=== PATIENT | male | born 1950 | race Caucasian/White ===

== ENCOUNTER → 2017-06-08 11:22 | Outpatient (CLI) | payer MEDICARE, SELFPAY ==
[2017-06-08 12:25] LABS: Amphetamine Urine VISTA NEGATIVE (<1000 ng/mL); Barbiturate Urine VISTA NEGATIVE (< 200 ng/mL); Benzodiazepine Urine VISTA NEGATIVE (< 200 ng/mL); Cocaine Urine VISTA NEGATIVE (< 300 ng/mL); Ecstacy Urine VISTA NEGATIVE (< 500 ng/mL); Methadone Urine VISTA NEGATIVE (< 300 ng/mL); PCP Urine VISTA NEGATIVE (< 25 ng/mL); THC Urine VISTA NEGATIVE (< 50 ng/mL); Vista UDS pH Range 5
== END ==
PROVIDERS: Family Provider Nurse Practitioner Family; PCP Nurse Practitioner Family; Visit Provider Anesthesiology Pain Medicine
DX: F11.20 Opioid dependence, uncomplicated (principal)
CPT/HCPCS: 80307

== ENCOUNTER → 2017-06-20 08:23 | Outpatient (CLI) | payer MEDICARE, SELFPAY ==
--- NOTE | 2017-06-20 08:25 | RAD_ITS ---
STUDY: X-RAY - LUMBOSACRAL SPINE REASON FOR EXAM: Male, 66 years old. Lower back pain. TECHNIQUE: 7 view(s) of the lumbosacral spine were obtained. COMPARISON: Lumbar spine MRI, September 14, 2016. FINDINGS: There is flattening of lumbar lordosis. There is mild scoliosis of the thoracic spine. There is retrolisthesis of C3 on C4 of 3 mm. There is anterolisthesis of L2 on L3 of 3 mm. Otherwise normal alignment. There is maintenance of alignment with flexion and extension. There is multilevel endplate spondylosis of the lumbar vertebrae. There is multi-level degenerative disc disease with multi-level disc space narrowing. This is most marked at L2-3 and L3-4 . There is no evidence of acute fracture or loss of vertebral axial height. There is no evidence of spondylolysis. Normal bilateral sacral ala, sacroiliac joints, and visualized sacrum. There is atherosclerotic calcification of the abdominal aorta without a demonstrated aneurysm. RAD/L/S Spine Comp/w Bending Views IMPRESSION: Scoliosis and degenerative changes of the lumbar spine. There is no marked interval change. Electronically Signed: Ming West DO at 20:32 EDT Tel [phone], Service support ,
== END ==
PROVIDERS: Family Provider Nurse Practitioner Family; PCP Nurse Practitioner Family; Visit Provider Orthopaedic Surgery
DX: M54.16 Radiculopathy, lumbar region (principal)
CPT/HCPCS: 72114

== ENCOUNTER → 2018-04-25 11:17 | Outpatient (CLI) | payer MEDICARE, SELFPAY ==
[2018-04-25 12:51] LABS: Amphetamine Urine VISTA NEGATIVE (<1000 ng/mL); Barbiturate Urine VISTA NEGATIVE (< 200 ng/mL); Benzodiazepine Urine VISTA NEGATIVE (< 200 ng/mL); Cocaine Urine VISTA NEGATIVE (< 300 ng/mL); Ecstacy Urine VISTA NEGATIVE (< 500 ng/mL); Methadone Urine VISTA NEGATIVE (< 300 ng/mL); PCP Urine VISTA NEGATIVE (< 25 ng/mL); THC Urine VISTA NEGATIVE (< 50 ng/mL); Vista UDS pH Range 6
== END ==
PROVIDERS: Family Provider Nurse Practitioner Family; PCP Nurse Practitioner Family; Referring Provider Anesthesiology Pain Medicine; Visit Provider Anesthesiology Pain Medicine
DX: F11.20 Opioid dependence, uncomplicated (principal)
CPT/HCPCS: 80307

== ENCOUNTER → 2019-08-01 09:40 | Outpatient (CLI) | payer MEDICARE, SELFPAY ==
[2017-06-20 08:24] VITALS: BMI 30.7
[2019-08-01 10:39] LABS: Amphetamine Urine VISTA NEGATIVE (<1000 ng/mL); Barbiturate Urine VISTA NEGATIVE (< 200 ng/mL); Benzodiazepine Urine VISTA NEGATIVE (< 200 ng/mL); Cocaine Urine VISTA NEGATIVE (< 300 ng/mL); Ecstacy Urine VISTA NEGATIVE (< 500 ng/mL); Methadone Urine VISTA NEGATIVE (< 300 ng/mL); PCP Urine VISTA NEGATIVE (< 25 ng/mL); THC Urine VISTA NEGATIVE (< 50 ng/mL); Vista UDS pH Range 6
== END ==
PROVIDERS: PCP Nurse Practitioner Family; Referring Provider Anesthesiology Pain Medicine; Visit Provider Anesthesiology Pain Medicine
DX: F11.20 Opioid dependence, uncomplicated (principal)
CPT/HCPCS: 80307

== ENCOUNTER → 2020-02-13 10:04 | Outpatient (CLI) | payer MEDICARE, SELFPAY ==
[2020-02-13 11:30] LABS: Amphetamine Urine VISTA NEGATIVE (<1000 ng/mL); Barbiturate Urine VISTA NEGATIVE (< 200 ng/mL); Benzodiazepine Urine VISTA NEGATIVE (< 200 ng/mL); Cocaine Urine VISTA NEGATIVE (< 300 ng/mL); Ecstacy Urine VISTA NEGATIVE (< 500 ng/mL); Methadone Urine VISTA NEGATIVE (< 300 ng/mL); PCP Urine VISTA NEGATIVE (< 25 ng/mL); THC Urine VISTA NEGATIVE (< 50 ng/mL); Vista UDS pH Range 5
== END ==
PROVIDERS: PCP Nurse Practitioner Family; Referring Provider Anesthesiology Pain Medicine; Visit Provider Anesthesiology Pain Medicine
DX: F11.20 Opioid dependence, uncomplicated (principal)
CPT/HCPCS: 80307

== ENCOUNTER → 2021-09-03 | Outpatient (CLI) | payer MEDICARE, MEDICAID, SELFPAY ==
[2021-09-03 14:21] LABS: Amphetamine Urine VISTA NEGATIVE (<1000 ng/mL); Barbiturate Urine VISTA NEGATIVE (< 200 ng/mL); Benzodiazepine Urine VISTA NEGATIVE (< 200 ng/mL); Cocaine Urine VISTA NEGATIVE (< 300 ng/mL); Ecstacy Urine VISTA NEGATIVE (< 500 ng/mL); Methadone Urine VISTA NEGATIVE (< 300 ng/mL); PCP Urine VISTA NEGATIVE (< 25 ng/mL); THC Urine VISTA NEGATIVE (< 50 ng/mL); Vista UDS pH Range 4
== END | disposition home or self-care (01) ==
LOC: LAB 13:08
PROVIDERS: PCP Nurse Practitioner Family; Referring Provider Anesthesiology Pain Medicine; Visit Provider Anesthesiology Pain Medicine
DX: F11.20 Opioid dependence, uncomplicated (principal)
CPT/HCPCS: 80307

== ENCOUNTER → 2022-06-09 | Outpatient (CLI) | payer MEDICARE, MEDICAID, SELFPAY ==
[2022-06-09 11:40] LABS: Amphetamine Urine VISTA NEGATIVE (<1000 ng/mL); Barbiturate Urine VISTA NEGATIVE (< 200 ng/mL); Benzodiazepine Urine VISTA NEGATIVE (< 200 ng/mL); Cocaine Urine VISTA NEGATIVE (< 300 ng/mL); Ecstacy Urine VISTA NEGATIVE (< 500 ng/mL); Methadone Urine VISTA NEGATIVE (< 300 ng/mL); PCP Urine VISTA NEGATIVE (< 25 ng/mL); THC Urine VISTA NEGATIVE (< 50 ng/mL); Vista UDS pH Range 6
== END | disposition home or self-care (01) ==
LOC: LAB 10:10
PROVIDERS: PCP Nurse Practitioner Family; Referring Provider Anesthesiology Pain Medicine; Visit Provider Anesthesiology Pain Medicine
DX: F11.20 Opioid dependence, uncomplicated (principal)
CPT/HCPCS: 80307

== ENCOUNTER → 2022-08-22 | Outpatient (CLI) | payer MEDICARE, MEDICAID, SELFPAY ==
--- NOTE | 2022-08-22 12:48 | ART_ITS ---
Reason For Study: Claudication Procedure A bilateral lower extremity continuous wave Doppler with analog waveform analysis,segmental pressures,and ankle brachial indexes without exercise. Left Segmental Pressures Left brachial= 110mmHg. Left thigh = 116mmHg. Left calf = 101mmHg. Left posterior tibial artery = 114mmHg. Left dorsalis pedis artery = 111mmHg. Left digit = 81 mmHg. Right Segmental Pressures Right brachial= 116mmHg. Right posterior tibial artery = 147mmHg. Right dorsalis pedis artery = 132mmHg. Right digit = 104 mmHg. Indices The right ankle brachial index by the posterior tibial artery is 1.27. The right ankle brachial index by the dorsalis pedis is 1.14. The right digital-brachial index is 0.90. The left ankle brachial index by the posterior tibial artery is 0.98. The left ankle brachial index by the dorsalis pedis is 0.96. The left digital-brachial index is 0.70. VL/Lower Ext Art Exam w/o Exercis Interpretation Summary Right PETE 1.27, normal. TBI and Doppler/PVR waveforms of the right leg normal a t rest. Left PETE 0.98, mild arterial insufficiency. Doppler/PVR waveforms and segmental pressures reveal no focal level of disease Ordering Physician: Quita Joel Referring Physician: Alma Rosa Song Performed By: Salina Brock RDCS/RVT
--- NOTE | 2022-08-22 12:48 | CDU_ITS ---
Reason For Study: Carotid Artery Stenosis Rt. Velocities/BP Lt. Velocities/BP Prox CCA 82/15 cm/sec. Prox CCA 59/10 cm/sec. Mid CCA 62/10 cm/sec. Mid CCA 50/14 cm/sec. Dist CCA 50/10 cm/sec. Dist CCA 39/14 cm/sec. Prox ICA 352/81 cm/sec. Prox ICA 51/15 cm/sec. Mid ICA 129/32 cm/sec. Mid ICA 86/26 cm/sec. Dist ICA 122/28 cm/sec. Dist ICA 86/26 cm/sec. Rt. ICA/CCA = 5.7. Lt. ICA/CCA = 1.7. Prox ECA 214/7 cm/sec. Prox ECA 45/9 cm/sec. Rt. Vert. 34/8 cm/sec. Lt. Vert. 39/12 cm/sec. Right Extracranial There is heterogeneous, irregular atherosclerotic plaque noted in the right common carotid artery. There is heterogeneous, irregular atherosclerotic plaque noted in the right internal carotid artery. There is heterogeneous, irregular atherosclerotic plaque noted in the right external carotid artery. Antegrade flow is noted in the right vertebral artery. Left Extracranial There is heterogeneous, irregular atherosclerotic plaque noted in the left common carotid artery. There is heterogeneous, irregular atherosclerotic plaque noted in the left internal carotid artery. There is heterogeneous, irregular atherosclerotic plaque noted in the left external carotid artery. Antegrade flow is noted in the left vertebral artery. Procedure Carotid Duplex [id number]. This is a Carotid Duplex examination using B-mode, color flow and specral Doppler. Prelim given to [facility]. Exam performed in department. VL/Carotid Duplex Ultrasound Interpretation Summary Severe (>70%) stenosis right extracranial internal carotid. Mild (<50%) stenosis left extracranial internal carotid. Patent and antegrade vertebrals bilaterally. Ordering Physician: Quita Joel Referring Physician: Alma Rosa Song Performed By: Salina Brock, BLAYNE, RVT
== END | disposition home or self-care (01) ==
LOC: CVS 12:48
PROVIDERS: PCP Nurse Practitioner Family; Referring Provider Physician Assistant; Visit Provider Physician Assistant
DX: I65.23 Occlusion and stenosis of bilateral carotid arteries (principal); I73.9 Peripheral vascular disease, unspecified
CPT/HCPCS: 93880; 93923

== ENCOUNTER → 2022-09-28 | Outpatient (CLI) | payer MEDICARE, MEDICAID, SELFPAY ==
--- NOTE | 2022-09-28 12:08 | EKG12_ITS ---
Test Reason : PRE OP Blood Pressure : / mmHG Vent. Rate : 066 BPM Atrial Rate : 066 BPM P-R Int : 140 ms QRS Dur : 088 ms QT Int : 400 ms P-R-T Axes : 017 046 060 degrees QTc Int : 419 ms Normal sinus rhythm Low voltage QRS Borderline ECG Confirmed by MADHU WAYNE ([id number]), assignment desk editor LOBITO JACKSON ([id number]) on 09/29/2022 11:37:21 AM Referred By: RICCARDO Confirmed By:MADHU WAYNE
[2022-09-28 12:31] LABS: Hematocrit 34.1 % (40-54); Hemoglobin 11.7 g/dL (13.0-16.5); Mean Corp Hgb Conc 34.3 g/dL (32-36); Mean Corpuscular Hgb 34.2 pg (27.0-32.0); Mean Corpuscular Volume 99.7 fL (80-94); Mean Platelet Vol. 8.5 fl (6.2-12.0); Platelet Count 205 K/mm3 (150-450); RBC Distribution Width CV 13.2 % (11.6-14.6); RBC Distribution Width SD 47.5 fl (35.1-43.9); Red Blood Count 3.42 M/mm3 (4.6-6.2)
[2022-09-28 12:47] LABS: Partial Thromboplast Time 33.4 Seconds (24.1-36.2); Prothrombin Time (Protime)PT. 13.2 SECONDS (11.7-14.9)
[2022-09-28 13:02] LABS: AST(SGOT) 23 U/L (15-37); Alanine Aminotransfer ALT/SGPT 24 U/L (16-61); Albumin, Serum 3.3 g/dL (3.2-5.0); Alkaline Phosphatase 47 U/L (45-117); Protein, Total 7.3 g/dL (6.4-8.2)
[2022-09-28 13:03] LABS: Hemoglobin A1c 6.3 % (3.8-5.6)
[2022-09-28 13:06] LABS: Anion Gap 6 (5-15); BUN 10 mg/dL (7-18); BUN/Creat Ratio 9.6 RATIO (10-20); Calcium,Total 8.4 mg/dL (8.5-10.1); Chloride 99 mmol/L (98-107); Creatinine, Serum 1.04 mg/dL (0.70-1.30); EST Glomerular Filtration Rate 75 mL/min (>60); Est Glom Filt Rate - Afr Amer 90 mL/min (>60); Glucose 96 mg/dL (74-106); Potassium 4.6 mmol/L (3.5-5.1); Sodium Level 133 mmol/L (136-145)
== END | disposition home or self-care (01) ==
LOC: PAT 11-03 15:32
PROVIDERS: Anesthesiology; PCP Nurse Practitioner Family; Referring Provider Surgery Trauma Surgery; Visit Provider Surgery Trauma Surgery
DX: Z01.818 Encounter for other preprocedural examination (principal); Z01.810 Encounter for preprocedural cardiovascular examination; Z01.812 Encounter for preprocedural laboratory examination
CPT/HCPCS: 36415; 80048; 80076; 83036; 85027; 85610; 85730; 86850; 86900; 86901; 93005

== ENCOUNTER → 2023-01-23 | Outpatient (CLI) | payer MEDICARE, MEDICAID, SELFPAY ==
--- NOTE | 2023-01-23 10:26 | CDU_ITS ---
Reason For Study: Rt Carotid Stenosis Rt. Velocities/BP Lt. Velocities/BP Prox CCA 86.9/10.2 cm/sec. Prox CCA 101.6/15.7 cm/sec. Mid CCA 88.8/15.7 cm/sec. Mid CCA 76.9/14.2 cm/sec. Dist CCA 65.0/15.7 cm/sec. Dist CCA 53.5/12.8 cm/sec. Prox ICA 369.5/91.0 cm/sec. Prox ICA 54.4/19.5 cm/sec. Mid ICA 126.0/24.9 cm/sec. Mid ICA 103.4/26.7 cm/sec. Dist ICA 60.9/19.2 cm/sec. Dist ICA 106.0/23.2 cm/sec. Rt. ICA/CCA = 4.2. Lt. ICA/CCA = 1.3. Prox ECA 315.0/.36.5 cm/sec. Prox ECA 73.2/14.2 cm/sec. Rt. Vert. 58.4/14.2 cm/sec. Lt. Vert. 69.9/16.0 cm/sec. Right Extracranial There is heterogeneous, irregular atherosclerotic plaque noted in the right common carotid artery. There is heterogeneous, irregular atherosclerotic plaque noted in the right internal carotid artery. The atherosclerotic plaque causes acoustic shadowing. There is heterogeneous, irregular atherosclerotic plaque noted in the right external carotid artery. Antegrade flow is noted in the right vertebral artery. Left Extracranial There is heterogeneous, irregular atherosclerotic plaque noted in the left common carotid artery. There is heterogeneous, irregular atherosclerotic plaque noted in the left internal carotid artery. There is heterogeneous, irregular atherosclerotic plaque noted in the left external carotid artery. The atherosclerotic plaque causes acoustic shadowing. Antegrade flow is noted in the left vertebral artery. Procedure Carotid Duplex [id number]. This is a Carotid Duplex examination using B-mode, color flow and specral Doppler. The exam was diagnostic. Exam performed in department. VL/Carotid Duplex Ultrasound Interpretation Summary Severe (>70%) stenosis right extracranial internal carotid. Mild (<50%) stenosis left extracranial internal carotid. Patent and antegrade vertebrals bilaterally. Ordering Physician: Amauri Hidalgo Referring Physician: Alma Rosa Song Performed By: Chaka Kiser RVT
== END | disposition home or self-care (01) ==
LOC: CVS 10:25
PROVIDERS: PCP Nurse Practitioner Family; Visit Provider Surgery Trauma Surgery
DX: I65.23 Occlusion and stenosis of bilateral carotid arteries (principal)
CPT/HCPCS: 93880

== ENCOUNTER 2023-02-14 08:04 | Inpatient (IN) | payer MEDICARE, MEDICAID, SELFPAY ==
[2023-02-09 16:36] LABS: Anion Gap 5 (5-15); BUN 9 mg/dL (7-18); BUN/Creat Ratio 8.5 RATIO (10-20); Calcium,Total 8.6 mg/dL (8.5-10.1); Chloride 103 mmol/L (98-107); Creatinine, Serum 1.06 mg/dL (0.70-1.30); EST Glomerular Filtration Rate 73 mL/min (>60); Est Glom Filt Rate - Afr Amer 88 mL/min (>60); Glucose 107 mg/dL (74-106); Potassium 4.7 mmol/L (3.5-5.1); Sodium Level 136 mmol/L (136-145)
[2023-02-09 16:43] LABS: Hematocrit 35.1 % (40-54); Hemoglobin 11.6 g/dL (13.0-16.5); Mean Corpuscular Hgb 32.6 pg (27.0-32.0); Mean Corpuscular Volume 98.6 fL (80-94); Mean Platelet Vol. 8.8 fl (6.2-12.0); Platelet Count 217 K/mm3 (150-450); RBC Distribution Width CV 13.2 % (11.6-14.6); RBC Distribution Width SD 47.8 fl (35.1-43.9); Red Blood Count 3.56 M/mm3 (4.6-6.2); White Blood Count 6.7 K/mm3 (4.4-11.0)
[2023-02-09 16:53] LABS: Hemoglobin A1c 5.8 % (3.8-5.6)
[2023-02-14] VITALS (19 sets, daily range): BP systolic 118–142; BP diastolic 47–95; PULSE 54–81; RESP 15–21; TEMP 36.2–36.6; O2SAT 92–99; BMI 32.0; BMI 34.1
--- OUTSIDE RECORDS SUMMARY | 2023-02-14 08:34 | XMS RPT_ITS | CCD ---
Author Name Unknown Address [address] [place] [address] Organization [facility] Care Team Providers Care Fan Installer Name Role Phone Dmitry RODRIGUEZ, Anurag V Unavailable LISA PHILLIPS MD Admitting Unavailabl e LISA PHILLIPS MD Primary Care Unavailabl e LISA PHILLIPS MD Attending Unavailabl e NEVIN ROMAN CNP Consulting Unavailable PROVIDER, UNKNOWN Consulting Unavailable PROVIDER, UNKNOWN Consulting Unavailable NEVIN ROMAN CNP Admitting Unavailable NEVIN ROMAN CNP Consulting Unavailable NEVIN ROMAN CNP Attending Unavailable NEVIN ROMAN CNP Primary Care Unavailable PROVIDER, UNKNOWN Consulting Unavailable PROVIDER, UNKNOWN Consulting Unavailable NEVIN ROMAN CNP Attending Unavailable NEVIN ROMAN CNP Admitting Unavailable NEVIN ROMAN CNP Consulting Unavailable NEVIN ROMAN CNP Primary Care Unavailable PROVIDER, UNKNOWN Consulting Unavailable PROVIDER, UNKNOWN Consulting Unavailable LISA PHILLIPS MD Admitting Unavailabl e LISA PHILLIPS MD Primary Care Unavailabl e NEVIN ROMAN CNP Consulting Unavailable LISA PHILLIPS MD Attending Unavailabl e PROVIDER, UNKNOWN Consulting Unavailable PROVIDER, UNKNOWN Consulting Unavailable LISA PHILLIPS MD Admitting Unavailabl e LISA PHILLIPS MD Primary Care Unavailabl e NEVIN ROMAN CNP Consulting Unavailable LISA PHILLIPS MD Attending Unavailabl e PROVIDER, UNKNOWN Consulting Unavailable PROVIDER, UNKNOWN Consulting Unavailable NEVIN ROMAN CNP Consulting Unavailable JUDITH GARCIA Admitting Unavailable JUDITH GARCIA Primary Care Unavailable JUDITH GARCIA Attending Unavailable PROVIDER, UNKNOWN Consulting Unavailable PROVIDER, UNKNOWN Consulting Unavailable LISA PHILLIPS MD Primary Care Unavailabl e LISA PHILLIPS MD Attending Unavailabl e LISA PHILLIPS MD Admitting Unavailabl e NEVIN ROMAN CNP Consulting Unavailable PROVIDER, UNKNOWN Consulting Unavailable PROVIDER, UNKNOWN Consulting Unavailable ALICIA BROOKS MD Attending Unavailable ALICIA BROOKS MD Admitting Unavailable NEVIN ROMAN CNP Referring Unavailable NEVIN ROMAN CNP Consulting Unavailable ALICIA BROOKS MD Primary Care Unavailable PROVIDER, UNKNOWN Consulting Unavailable PROVIDER, UNKNOWN Consulting Unavailable LISA PHILLIPS MD Admitting Unavailabl e LISA PHILLIPS MD Primary Care Unavailabl e NEVIN ROMAN CNP Consulting Unavailable LISA PHILLIPS MD Attending Unavailabl e PROVIDER, UNKNOWN Consulting Unavailable PROVIDER, UNKNOWN Consulting Unavailable NEVIN ROMAN CNP Attending Unavailable NEVIN ROMAN CNP Admitting Unavailable NEVIN ROMAN CNP Consulting Unavailable NEVIN ROMAN CNP Referring Unavailable NEVIN ROMAN CNP Primary Care Unavailable PROVIDER, UNKNOWN Consulting Unavailable PROVIDER, UNKNOWN Consulting Unavailable NEVIN ROMAN CNP Consulting Unavailable JUDITH GARCIA Admitting Unavailable JUDITH GARCIA Primary Care Unavailable JUDITH GARCIA Attending Unavailable PROVIDER, UNKNOWN Consulting Unavailable PROVIDER, UNKNOWN Consulting Unavailable LISA PHILLIPS MD Primary Care Unavailabl e LISA PHILLIPS MD Attending Unavailabl e NEVIN ROMAN CNP Consulting Unavailable LISA PHILLIPS MD Admitting Unavailabl e PROVIDER, UNKNOWN Consulting Unavailable PROVIDER, UNKNOWN Consulting Unavailable LISA PHILLIPS MD Admitting Unavailabl e SHAWNAANDALISA Fatima MD Primary Care Unavailabl e LISA PHILLIPS MD Attending Unavailabl e NEVIN ROMAN CNP Consulting Unavailable PROVIDER, UNKNOWN Consulting Unavailable PROVIDER, UNKNOWN Consulting Unavailable NEVIN ROMAN CNP Admitting Unavailable NEVIN ROMAN CNP Consulting Unavailable NEVIN ROMAN CNP Attending Unavailable NEVIN ROMAN CNP Primary Care Unavailable PROVIDER, UNKNOWN Consulting Unavailable PROVIDER, UNKNOWN Consulting Unavailable NEVIN ROMAN CNP Consulting Unavailable JUDITH GARCIA Primary Care Unavailable JUDITH GARCIA Attending Unavailable JUDITH GARCIA Admitting Unavailable PROVIDER, UNKNOWN Consulting Unavailable PROVIDER, UNKNOWN Consulting Unavailable LISA PHILLIPS MD Attending Unavailabl e LISA PHILLIPS MD Admitting Unavailabl e NEVIN ROMAN CNP Consulting Unavailable LISA PHILLIPS MD Primary Care Unavailabl e PROVIDER, UNKNOWN Consulting Unavailable PROVIDER, UNKNOWN Consulting Unavailable Allergies Allergy Classification Reported Allergen(s) Allergy Type Date of Onset Reaction(s) Facility (1 source) Seasonal allergy; Translations: [SEASONAL] allergy to substance 9 [facility] Work Phone: Medications Completed/Discontinued Medications Medication Drug Class(es) Dates Sig (Normalized) Sig (Original) amLODIPine 10 mg oral tablet (1 source) Dihydropyridine Calcium Channel Marty Start: 03-20-2018 AMLODIPINE BESYLATE 10 MG TABS 1 tablet daily AMLODIPINE BESYLATE [id number] Genevieve Flores SHALA aspirin 325 mg delayed release oral tablet (1 source) Platelet Aggregation Inhibitor, Nonsteroidal Anti-inflammatory Drug Start: 03-20-2018 ASPIRIN EC 325 MG TBEC 1 tablet daily ASPIRIN [id number] Genevieve Flores COMPETITIVE INTELLIGENCE MANAGER atorvastatin 40 mg oral tablet (1 source) HMG-CoA Reductase Inhibitor Start: 03-20-2018 ATORVASTATIN CALCIUM 40 MG TABS 1 tablet daily ATORVASTATIN CALCIUM [id number] Genevieve Flores COMPETITIVE INTELLIGENCE MANAGER CALCIUM CARB-CHOLECALCIFERO L TABS (1 source) Start: 03-20-2018 CALCIUM 600 + D TABS 1 tablet daily CALCIUM CARB-CHOLECALCIFERO L TABS 45121367897 Genevieve Flores SHALA clopidogrel 75 mg oral tablet (1 source) P2Y12 Platelet Inhibitor Start: 03-20-2018 PLAVIX 75 MG TABS 1 tablet daily CLOPIDOGREL BISULFATE 36990096535 Genevieve Flores SHALA COENZYME Q10 (1 source) Start: 03-20-2018 CO Q 10 100 MG CAPS 1 capsule daily COENZYME Q10 [id number] Genevieve Flores SHALA esomeprazole 20 mg delayed release oral capsule (1 source) Proton Pump Inhibitor Start: 03-20-2018 ESOMEPRAZOLE MAGNESIUM 20 MG CPDR 1 capsule daily ESOMEPRAZOLE MAGNESIUM 94607638409 Genevieve Flores SHALA FLUoxetine 40 mg oral capsule (1 source) Serotonin Reuptake Inhibitor Start: 03-20-2018 FLUOXETINE HCL 40 MG CAPS 1 capsule daily FLUOXETINE HCL 87077513059 Genevieve Flores COMPETITIVE INTELLIGENCE MANAGER furosemide 40 mg oral tablet (1 source) Loop Diuretic Start: 03-20-2018 FUROSEMIDE 40 MG TABS 1 tablet daily FUROSEMIDE 45703863834 Genevievepuja Flores SHALA isosorbide dinitrate 30 mg oral tablet (1 source) Nitrate Vasodilator Start: 03-20-2018 ISOSORBIDE DINITRATE 30 MG TABS 1 tablet daily ISOSORBIDE DINITRATE 39508247492 Genevieve Mark LAST melatonin 10 mg oral tablet (1 source) Start: 03-20-2018 MELATONIN 10 MG TABS 1 tablet daily MELATONIN 54207630939 Genevieve Flores LPN metoprolol tartrate 50 mg oral tablet (1 source) beta-Adrenergic Marty Start: 03-20-2018 METOPROLOL TARTRATE 50 MG TABS 1 tablet twice daily METOPROLOL TARTRATE 16537676542 Genevieve Flores LPN nitroglycerin 0.4 mg sublingual tablet (1 source) Nitrate Vasodilator Start: 03-20-2018 NITROSTAT 0.4 MG SUBL as directed as needed NITROGLYCERIN 27413635581 Genevieve Flores LPN oxyCODONE 18 mg 12 hr extended release oral capsule, abuse-deterrent (1 source) Opioid Agonist Start: 03-20-2018 XTAMPZA ER 18 MG C12A 1 tablet twice daily-Pain Mgt prescribes OXYCODONE 74155086216 Anurag Andres MD POLYETHYLENE GLYCOL 3350 (1 source) Osmotic Laxative Start: 03-20-2018 MIRALAX PACK as directed as needed POLYETHYLENE GLYCOL 3350 26180470264 Genevieve Flores LPN ramipril 10 mg oral capsule (1 source) Angiotensin Converting Enzyme Inhibitor Start: 03-20-2018 RAMIPRIL 10 MG CAPS 1 capsule twice daily RAMIPRIL 25235287469 Genevieve Flores LPN tamsulosin hydrochloride 0.4 mg oral capsule (1 source) alpha-Adrenergic Marty Start: 03-20-2018 TAMSULOSIN HCL 0.4 MG CAPS 1 capsule daily TAMSULOSIN HCL 13211486709 Genevieve Flores LPN vitamin b 12 0.5 mg oral tablet (1 source) Vitamin B12 Start: 03-20-2018 B-12 500 MCG TABS 1 tablet daily CYANOCOBALAMIN 37063384169 Genevieve Flores LPN Problems Active Problems Problem Classification Problem Date Documented Da te Episodic/Chronic Acute and unspecified renal failure (1 source) Acute kidney failure, unspecified; Translations: [Acute kidney failure, unspecified] Onset: 10-21-2022 Episodic Chronic obstructive pulmonary disease and bronchiectasis (1 source) Chronic obstructive pulmonary disease, unspecified; Translations: [Chronic obstructive pulmonary disease, unspecified] Onset: 07-08-2022 Chronic Congestive heart failure; nonhypertensive (3 sources) Heart failure, unspecified; Translations: [Heart failure, unspecified] Onset: 10-14-2022 Chronic Diabetes mellitus with complications (2 sources) Type 2 diabetes mellitus with hyperglycemia; Translations: [Type 2 diabetes mellitus with hyperglycemia] Onset: 07-14-2022 Chronic Disorders of lipid metabolism (1 source) Hyperlipidemia, unspecified; Translations: [Hyperlipidemia, unspecified] Onset: 07-14-2022 Chronic Essential hypertension (1 source) Essential (primary) hypertension; Translations: [Essential (primary) hypertension] Onset: 07-08-2022 Chronic Headache; including migraine (3 sources) Headache; including migraine; Translations: [Headache, unspecified] Onset: 07-08-2022 Other acquired deformities (1 source) Scoliosis of lumbar spine; Translations: [Other secondary scoliosis, lumbar region] Onset: 03-22-2018 03-22-2018 Chronic Other acquired deformities (1 source) Spondylolisthesis, lumbar region; Translations: [Spondylolisthesis , lumbar region] Onset: 03-22-2018 03-22-2018 Episodic Residual codes; unclassified (1 source) Tobacco use; Translations: [Tobacco use] Onset: 03-22-2018 03-22-2018 Episodic Spondylosis; intervertebral disc disorders; other back problems (1 source) Spinal stenosis of lumbar region; Translations: [Spinal stenosis, lumbar region with neurogenic claudication] Onset: 03-22-2018 03-22-2018 Episodic Past or Other Problems Problem Classification Problem Date Documented Date Episodic/Chronic Other aftercare (1 source) Other buttermaker (current) drug therapy; Translations: [Other correction (current) drug therapy] Onset: 07-08-2022 Episodic Other aftercare (1 source) custodial (current) use of aspirin; Translations: [moth exterminator (current) use of aspirin] Onset: 07-08-2022 Episodic Other connective tissue disease (3 sources) Cramp and spasm; Translations: [Cramp and spasm] Onset: 07-14-2022 Episodic Other lower respiratory disease (3 sources) Unspecified abnormalities of breathing; Translations: [Unspecified abnormalities of breathing] Onset: 06-14-2022 Episodic Other nervous system disorders (1 source) Paresthesia of skin; Translations: [Paresthesia of skin] Onset: 03-11-2022 Episodic Screening and history of mental health and substance abuse codes (1 source) Personal history of nicotine dependence; Translations: [Personal history of nicotine dependence] Onset: 07-08-2022 Episodic Unclassified (1 source) Problem Results Test Name Value Interpretation Reference Range Facil ity Vital Signs Date Time Vital Sign Value Performing Clinician Facility NEGATED: Highlighted [id number] 11:56-0500 BMI (Body Mass Index) 31.43 kg/m2 Dyana Cruz COMPETITIVE INTELLIGENCE MANAGER [facility] Work Phone: NEGATED: Highlighted [id number] 11:56-0500 BP Diastolic 76 mm[Hg] Dyana Cruz [facility] Work Phone: NEGATED: Highlighted [id number] 11:56-0500 BP Systolic 111 mm[Hg] Dyana Cruz [facility] Work Phone: NEGATED: Highlighted [id number] 11:56-0500 Height 167.64 cm Dyana Cruz COMPETITIVE INTELLIGENCE MANAGER [facility] Work Phone: NEGATED: Highlighted [id number] 11:56-0500 Height 168 cm Dyana Cruz COMPETITIVE INTELLIGENCE MANAGER [facility] Work Phone: NEGATED: Highlighted [id number] 11:56-0500 Pulse (Heart Rate) 58 /min Dyana Cruz [facility] Work Phone: NEGATED: Highlighted [id number] 11:56-0500 Weight 88 kg Dyana Cruz COMPETITIVE INTELLIGENCE MANAGER [facility] Work Phone: Encounters Encounter Date Encounter Type Care Provider Facility Start: 12-26-2022 End: 12-26-2022 ambulatory LISA RODRIGUEZ [facility] Start: 11-18-2022 End: 11-18-2022 ambulatory LISA RODRIGUEZ [facility] Start: 11-05-2022 End: 11-05-2022 ambulatory LISA RODRIGUEZ [facility] Start: 11-05-2022 End: 11-05-2022 ambulatory NEVIN CONSERVATION EDUCATOR [facility] Start: 10-21-2022 End: 10-21-2022 ambulatory NEVIN CONSERVATION EDUCATOR [facility] Start: 10-14-2022 End: 10-14-2022 ambulatory LISA RODRIGUEZ [facility] Start: 10-10-2022 End: 10-10-2022 ambulatory LISA RODRIGUEZ [facility] Start: 09-16-2022 End: 09-16-2022 ambulatory LISA RODRIGUEZ [facility] Start: 08-10-2022 End: 08-10-2022 ambulatory NEVIN [facility] Start: 07-14-2022 End: 07-14-2022 ambulatory NEVIN [facility] Start: 07-08-2022 End: 07-08-2022 Emergency department patient visit ALICIA RODRIGUEZ [facility] Start: 06-14-2022 End: 06-14-2022 ambulatory LISA RODRIGUEZ [facility] Start: 05-13-2022 End: 05-13-2022 ambulatory LISA RODRIGUEZ [facility] Start: 03-14-2022 End: 03-14-2022 ambulatory NEVIN [facility] Start: 03-11-2022 End: 03-11-2022 ambulatory NEVIN CONSERVATION EDUCATOR [facility] Start: 01-25-2022 End: 01-25-2022 ambulatory NEVIN [facility] Start: 03-22-2018 End: 03-22-2018 Patient encounter procedure Anurag Andres MD Work Phone: [facility] Work Phone: Procedures Date Procedure Procedure Detail Performing Clinician Start: 03-22-2018 End: 03-22-2018 Blood pressure within normal parameters - no follow-up required Anurag Andres MD Work Phone: Start: 03-22-2018 End: 03-22-2018 BMI documented as above normal parameters - follow-up documented Anurag Andres MD Work Phone: Start: 03-22-2018 End: 03-22-2018 Documentation of current medications Anurag Andres MD Work Phone: Start: 03-22-2018 End: 03-22-2018 Fall plan of care docpan Tsai Work Phone: Start: 03-22-2018 End: 03-22-2018 Fall risk assessment black conti MD Work Phone: Start: 03-22-2018 End: 03-22-2018 Pain assessment documented as positive - follow-up documented Anurag Andres MD Work Phone: Start: 03-22-2018 End: 03-22-2018 Ptfalls assess-docd ge2>/yr Anurag cole MD Work Phone: Start: 03-22-2018 End: 03-22-2018 Tobacco screening or cessation counseling not performed - unknown reason Anurag Andres MD Work Phone: Plan of Treatment Date Care Activity Detail Author Start: 03-22-2018 End: 03-22-[address] [facility] Work Phone: Start: 03-22-2018 End: 03-22-2018 Mri spinal canal lumbar w/o contrast material MRI lumbar without contrast [facility] Work Phone: Start: 03-22-2018 End: 03-22-2018 Radex spine lumbosacral 2/3 views XR LUMBAR 2-3 VWS AP/LAT [facility] Work Phone: Patient Education \cps-sql1\CPS_ PtEducati on\CDC_FALL_PREVENTION. pdf, \cps-sql1\CPS_PtEducati on\CDC_FALL_PREVENTION. pdf, \cps-sql1\CPS_PtEducati on\quitting_smoking_[id number] [facility] Work Phone: Immunizations Immunization Date Immunization Notes Care Provider Ralph medrano No information available. Dyana Cruz LPN [facility] Work Phone: Payers Date Payer Category Payer Medicare [id number] 2020 Medicaid [id number] 1950 Unknown [id number] 2.16.8 [id number] 1950 Unknown [id number] 2.16.8 40.1.612718.3.579.2.651 1950 Unknown [id number] 2.16.8 40.1.639986.3.579.2.651 1950 Unknown [id number] 2.16.8 40.1.408914.3.579.2.651 1950 Unknown [id number] 2.16.8 40.1.809345.3.579.2.651 1950 Unknown [id number] 2.16.8 40.1.346888.3.579.2.651 1950 Unknown [id number] 2.16.8 40.1.458371.3.579.2.651 1950 Unknown [id number] 2.16.8 40.1.621511.3.579.2.651 1950 Unknown [id number] 2.16.8 40.1.577641.3.579.2.651 1950 Unknown [id number] 2.16.8 40.1.198617.3.579.2.651 1950 Unknown [id number] 2.16.84 0.1.599883.3.579.2.651 1950 Unknown [id number] 2.16.84 0.1.858098.3.579.2.651 1950 Unknown [id number] 2.16.84 0.1.500627.3.579.2.651 1950 Unknown [id number] 2.16.84 0.1.754384.3.579.2.651 1950 Unknown [id number] 2.16.84 0.1.802131.3.579.2.651 1950 Unknown [id number] 2.16.84 0.1.349050.3.579.2.651 Social History Date Type Detail Facility Start: 03-22-2018 End: 03-22-2018 Assertion Unknown if ever smoked [facility] Work Phone: Summary Purpose Family History No Family History Records FoundThere may be information available, but it has not been provided by the sender.No Family History Records FoundNo Family History Records FoundNo Family History Records Found Advance Directives No Advanced Directives Records FoundThere may be information available, but it has not been provided by the sender.No Advanced Directives Records FoundNo Advanced Directives Records FoundNo Advanced Directives Records Found Chief Complaint Chief Complaint Description Start Date lower back pain Preliminary chief co mplaint data, not yet signed by the author as of Instructions Instruction Description Start Date Patient advised to follow-up with Primary Care Physician for BMI management. Assessments There may be information available, but it has not been provided by the sender. Review of System There may be information available, but it has not been provided by the sender. History of Present Illness There may be information available, but it has not been provided by the sender. Additional Source Comments (unrecognized sect ion and content) No Status Records FoundNo Status Records FoundNo Status Records FoundNo Status Records Found INFORMATION SOURCE (unrecogn ized section and content) DATE CREATED AUTHOR AUTHOR'S ORGANIZ ATION 01/23/2020 [facility] DATE CREATED AUTHOR AUTHOR'S ORGANIZ ATION 10/23/2022 [facility] DATE CREATED AUTHOR AUTHOR'S ORGANIZ ATION 12/26/2022 [facility] Reason for Visit (unrecogniz ed section and content) FOR RECORDS PERTAINING TO PATIENTS WHO ARE OR HAVE BEEN ENROLLED IN A CHEMICAL DEPENDENCY/SUBSTANCEABUSE PROGRAM, SOME INFORMATION MAY BE OMITTED. This clinical summary was aggregated from multiple sources. Caution should be exercised in using it in the provision of clinical care. This summary normalizes information from multiple sources, and as a consequence, information in this document may materially change the coding, format and clinical context of patient data. In addition, data may be omitted in some cases. CLINICAL DECISIONS SHOULD BE BASED ON THE PRIMARY CLINICAL RECORDS. [facility] [employer] [facility]. provides no warranty or guarantee of the accuracy or completeness of information in this document.
[2023-02-14] MEDS: 0.9% Normal Saline (1000mL) 1,000 ML IV (09:26)
[2023-02-14] MEDS: Lactated Ringers 1,000 ML 15 ML IV (09:26)
[2023-02-14 09:51] LABS: Bedside Glucose 94 mg/dL (74-106)
[2023-02-14] MEDS: Metoprolol Tartrate 50 MG Tablet PO (10:05)
--- NOTE | 2023-02-14 10:35 | PLAQ_PTH ---
PATHOLOGY RESULTS PATIENT: SHILPA BARROS LOC: [facility] U#:[id number] AGE/SX: 72/M ROOM: [place] [address] RE02/14/[address]: Dr. Amauri Hidalgo MD : 1950 BED: 1 DIS: 02/15/2023 SPEC #: [id number] RECD: 02/14/23 16:55 STATUS: JACE REAydin #: [id number] KRISTAL: 02/14/23 10:[address]: Amauri Hidalgo DEPT: SURGICAL PATHOLOGY RECD BY: Kaitlin Finley ENTERED: 02/15/23 08:59 SP TYPE: PLAQUE OTHR DR: Alma Rosa Song, NELDA-Kimberli Tissues: PLAQUE Procedures: Decalcification bone/plaque Surgery Specimen Level III HEADER OPERATION: Carotid endarterectomy PRE-OP DIAGNOSIS: Carotid artery stenosis TISSUE SUBMITTED: Right carotid plaque MICROSCOPIC DIAGNOSIS Right carotid plaque, endarterectomy: Calcified atheromatous plaque consistent with severe stenosis. AM:zander 02/21/2023 GROSS DESCRIPTION Received in fixative is one container labeled with the patient's name and designated right carotid plaque. The specimen consists of a Y-shaped piece of muñiz-yellow, indurated tissue measuring 2.5 cm in length and up to 0.9 cm in diameter. The lumen is markedly narrowed. The specimen cuts with gritty sensation. Also present in the container is a second tubular piece of muñiz-yellow, indurated tissue measuring 0.7 cm in length and 0.5 cm in diameter. Also present in the container is a piece of muñiz, indurated tissue measuring 2.0 x 1.0 x 0.1 cm. Descriptive Catalog Librarian sections are submitted in one cassette after decalcification. / SJ:zander 02/15/2023 TC:5 CPT: 83664, 56608
--- NOTE | 2023-02-14 10:54 | PCM.HP.BLA ---
History and Physical Allergies No Known Allergies Allergy (Verified 01/16/23 13:51) [facility] Medical History Ambulates with cane Arthritis Back pain CAD (coronary artery disease) Cancer Cardiology follow-up encounter COPD (chronic obstructive pulmonary disease) Depression Easy bruising Excessive bleeding Gastric reflux h/o bone infection High cholesterol History of echocardiogram History of edema History of heart attack History of irregular heartbeat History of steroid therapy History of stress test HTN (hypertension) with goal to be determined Leg cramps On home oxygen therapy Prostate disease Restless legs Shortness of breath on exertion Smoker TIA (transient ischemic attack) Wears dentures Wears glasses Surgical History H/O heart artery stent H/O hernia repair History of cholecystectomy History of coronary artery bypass graft x 3 History of esophagogastroduodenoscopy (EGD) History of wisdom tooth extraction Hx of colonoscopy left clavicle orif Social History Smoking Status: Light Smoker (<10/day) HPI HPI HPI: SHILPA BARROS, is a 72 M who presents to the office today for follow up of previously symptomatic right carotid stenosis. Was initially scheduled for right CEA in September but had fairly abrupt onset fluid overload/CHF exacerbation that delayed. He is currently back to baseline from SOB/edema standpoint at visit with cardiology last week they were satisfied with his volume status. He denies any new numbness/weakness/vision loss/speech difficulty. ROS General General: Yes fatigue and weakness; No weight change, appetite, colon cancer or breast cancer HEENT HEENT: No difficulty swallowing, eye injury, eye surgery, swollen glands or hoarseness Endo Endocrine: Yes diabetes mellitus; No thyroid disease, thyroid cancer, Hair loss, heat intolerance or cold intolerance Skin Skin: No rash or changing moles Musc Musculoskeletal: Yes back problems and arthritis; No rheumatoid arthritis, gout or joint pain Cardio Cardiovascular: Yes murmur, heart disease, high blood pressure, heart attack and heart stent; No pacemaker, atrial fibrillation, palpitations, shortness of breat with exertion or chest pain Psych Psychiatric: Yes depression; No anxiety or hearing voices Resp Respiratory: Yes shortness of breath, No sleep apnea, Yes cough, Yes COPD, No asthma, No emphysema and No wheezing Gastro Gastrointestinal: No abdominal pain, No nausea or vomiting, No diarrhea, Yes constipation, No blood in stool, Yes acid reflux, No hemorrhoids, No ulcers, No gallbladder problem and No black,tarry stools Naresh Hematologic: Yes blood thinners, No blood disorders, Yes bleeding, No anemia and No blood clots Neuro Neurologic: No system reviewed and no additional complaints, except as documented, No as per HPI, Yes abnormal gait, No abnormal hearing, No abnormal movements, No abnormal speech, No behavioral changes, No burning sensations, No confusion, No convulsions, Yes disequilibrium, No dizziness, No localized weakness, No frequent falls, No headache(s), No lack of coordination, No loss of vision, No memory loss, Yes numbness, No other visual disturbances, No radicular pain, No restless legs, No sensory deficit, No syncope, Yes tingling, No tremor(s), Yes weakness and No other Exam Const General: cooperative, healthy appearing, comfortable, no acute distress and well developed Nutritional Appearance: well nourished Orientation: alert, awake and oriented x3 HENMT Head: normocephalic and atraumatic Ears: hearing grossly normal bilaterally Nose: external nose normal Eyes General: appearance normal, both eyes and all related structures EOM: EOM intact bilaterally Neck Neck: normal visual inspection, full ROM, no lymphadenopathy and trachea midline Thyroid: thyroid normal Lymphatic: no lymphadenopathy noted Resp Effort & Inspection: normal respiratory effort, able to speak in complete sentences, symmetric chest movement, no audible wheezes, not labored, no stridor and no use of accessory muscles Auscultation: clear to auscultation bilaterally Cardio Rate: regular rate Rhythm: regular rhythm Heart Sounds: no murmurs Bruits: no carotid bruits Pulses: brachial pulses present, radial pulses present, posterior tibial pulses not present and dorsalis pedis pulses not present Skin General: no rashes or lesions noted and no erythema Wounds: no wounds Neuro Cranial Nerves: CN's II-XI intact bilaterally and EOM intact bilaterally Speech: speech normal Gait: normal gait Motor: strength 5/5 throughout Sensory Exam: no sensory deficits noted Extremities Lower Extremity Edema: +1: Bilateral Psych Appearance: grossly normal and well kempt Mental Status: mental status grossly normal Mood: congruent mood Speech and Movement: speech and movement normal Thought Content: normal Judgment: judgment good Coding Level of Care Code Off vis,est,level 3 Diagnoses Bilateral carotid artery stenosis I65.23 Laterality: bilateral Assessment and Plan Assessment and Plan (1) Carotid artery stenosis: Status: Chronic Qualifiers: Laterality: bilateral Qualified Code(s): I65.23 - Occlusion and stenosis of bilateral carotid arteries Comment: Duplex- Interpretation Summary Severe (>70%) stenosis right extracranial internal carotid. Mild (<50%) stenosis left extracranial internal carotid. Patent and antegrade vertebrals bilaterally. CTA-images reviewed, dense calcification, 85% stenosis by NASCET Plan: -right CEA
[2023-02-14] MEDS: Cefazolin 3 GM in 0.9% Normal Saline (100mL Bag) 100 ML IV (11:10)
[2023-02-14] MEDS: Heparin Injection (Vial) 5,000 UNIT/ML VIAL 5000 UNIT (11:56)
[2023-02-14] MEDS: Bupivacaine Mpf 0.5% 30 ML VIAL (13:55)
--- NOTE | 2023-02-14 14:00 | OP.PCM_ITS ---
Report of Operation Date of Procedure: 02/14/23 Pre-Operative Diagnosis: right carotid stenosis Post-Operative Diagnosis: same Surgery/Procedure Performed:: right carotid endarterectomy Surgeon: Amauri Hidalgo Type of Anesthesia: General Drains: 19 Fr CATALINA Estimated Blood Loss (mL): 15 Description of Procedure: HPI: Patient is a 72-year-old male with previous right hemispheric cerebrovascular event that was attributed to a high-grade right carotid artery stenosis. He initially had been scheduled for endarterectomy however this had to be delayed due to some significant cardiac comorbidities specifically heart failure that was poorly optimized. Ultimately he was able to be medically optimized and he presents now for a right carotid endarterectomy. Description of procedure: Upon obtaining form consent and verification correct patient procedure site patient taken to the operating was placed under anesthesia. He was then positioned prepped and draped in you sterile fashion time was performed. Oblique incision was made along the interval to the sternocleidomastoid and Bovie cautery was dissect down through subcutaneous tissue to level the platysma. The platysma was then divided septum retractor put in position. Further dissection carried with the Bovie down to the anterior border the sternocleidomastoid allowed to be partially retracted exposing the carotid sheath. Sharp dissection then used to dissect free the jugular vein proximal and distal with the facial vein identified, ligated, and divided. This then retracted laterally exposing the carotid vessels and sharp dissection was used dissect free the proximal common carotid artery with care taken to identify and protect the vagus nerve. A right angle to place a vessel loop at the proximal extent of the vessel and attention turned distally to the internal carotid artery. Sharp dissection used to dissect free the the internal carotid artery distally beyond the area of palpable and visible plaque with care taken to identify and protect the hypoglossal nerve. A right angle was used to place a vessel loop on the distal extent of the internal carotid artery and the patient was in heparinized allowed circuit for 3 minutes. Further heparin dosing was determined based on serial ACT results. Next the external carotid artery was dissected free and a right angle used to place a vessel loop. Vessels then occluded first the internal followed by the common external and a longitudinal arteriotomy created with 11 blade on the common carotid artery extended Horta scissors onto the internal carotid artery beyond the area of plaque. A 12 [place] shunt was then placed first distally in the internal carotid artery allowed to backbleed and then placed proximally into the common carotid artery. The shunt was interrogated Doppler found be patent with low resistance signal. Next we performed her endarterectomy with a freer elevator with eversion endarterectomy of the external carotid artery and satisfactory endpoint of the internal carotid artery. The distal endpoint was then tacked with 7-0 Prolene interrupted sutures and the lumen flushed heparinized saline to clear of any debris. A bovine pericardial patch was brought in the field and secured in position with a 6-0 Prolene in a running fashion. Prior to completing suture line the shunt was withdrawn and the vessels backbled. After completing suture line the internal carotid artery allowed to backbleed into the bifurcation then reoccluded its origin. Clamps were then removed from the ex ternal and the common carotid artery allowing 10 heartbeats of antegrade flow to flush into the external carotid artery before reestablishing antegrade flow into the internal carotid artery. The vessels were then interrogated Doppler with low resistance signal in the internal carotid artery and appropriate signal in the external carotid artery. The patient was then reversed with protamine and the incision inspected hemostasis. There was still some oozing from the suture line and adjacent to the hypoglossal nerve so hemoblast topical hemostatic was applied after which satisfactory hemostasis was noted. A 19 [place] CATALINA was then placed via separate stab incision and the incision closed with 2-0 Vicryl, 3-0 Vicryl, 4 Monocryl and Dermabond for the skin. At the conclusion the case patient was awake anesthesia moving all extremities to command. He was then taken recovery room with anticipated mission of the intensive care unit for hemodynamic and neurologic monitoring.
[2023-02-14] MEDS: Nitro/D5w 25MG/250ML Bottle 25 MG (14:11)
[2023-02-14] MEDS: 0.45% Normal Saline 1,000 ML 50 ML IV (15:45)
[2023-02-14] MEDS: Acetaminophen 500 MG Tablet 1000 MG PO (16:21)
[2023-02-14] MEDS: Tamsulosin HCl 0.4 MG Capsule 0.400000000000000022 MG PO (16:21)
[2023-02-14] MEDS: amLODIPine 10 MG Tablet PO (16:39)
[2023-02-14] MEDS: oxyCODONE 5 MG Tablet PO (16:39)
[2023-02-14 17:00] LABS: Bedside Glucose 143 mg/dL (74-106)
[2023-02-14] MEDS: Cefazolin 1 GM/50 ML BAG IV (18:43)
[2023-02-14] MEDS: Albuterol 2.5 MG/3 ML VIAL.NEB. INHALATION (19:39)
[2023-02-14] MEDS: Budesonide Respules 0.5 MG/2 ML AMPUL.NEB. INHALATION (19:40)
[2023-02-14] MEDS: Potassium Chloride Oral Tablet 20 MEQ PO (20:12)
[2023-02-14] MEDS: Furosemide 40 MG Tablet PO (20:13)
[2023-02-14] MEDS: oxyCODONE HCl Cr 10 MG Tablet 20 MG PO (20:13)
[2023-02-14] MEDS: Insulin Lispro 100 UNIT/ML INSULN.PEN SC (20:21)
[2023-02-14 20:37] LABS: Bedside Glucose 187 mg/dL (74-106)
[2023-02-15] VITALS (20 sets, daily range): BP systolic 100–168; BP diastolic 50–78; PULSE 69–93; RESP 16–24; TEMP 36.4–36.9; O2SAT 93–99; BMI 33.5
[2023-02-15] MEDS: Labetalol (Prefilled) 20 MG/4 ML 10 MG IV ×2 (03:41→06:48)
[2023-02-15 03:42] LABS: Absolute Lymphocyte Count 1.09 X10^3/uL (0.83-4.51); Absolute Neutrophil Count 7.9 X10^3/uL (2.0-7.7); Basophil# 0.01 X10^3/uL; Basophil% 0.1 % (0-1); Hematocrit 32.5 % (40-54); Hemoglobin 11.2 g/dL (13.0-16.5); Lymphocyte # 1.09 X10^3/ul (0.83-4.51); Lymphocyte % 11.5 % (19-41); Mean Corp Hgb Conc 34.5 g/dL (32-36); Mean Corpuscular Hgb 32.5 pg (27.0-32.0); Mean Corpuscular Volume 94.2 fL (80-94); Mean Platelet Vol. 8.2 fl (6.2-12.0); Monocyte# 0.39 X10^3/uL; Monocyte% 4.1 % (0-10); NRBC Flagged by Analyzer 0 % (0-5); Neutrophil % 83.7 % (47-70); Platelet Count 180 K/mm3 (150-450); RBC Distribution Width CV 12.9 % (11.6-14.6); RBC Distribution Width SD 44.4 fl (35.1-43.9); Red Blood Count 3.45 M/mm3 (4.6-6.2); White Blood Count 9.5 K/mm3 (4.4-11.0)
[2023-02-15] MEDS: 0.9% Saline Lock 10 ML Syringe IV ×3 (03:42→06:48)
[2023-02-15] MEDS: Cefazolin 1 GM/50 ML BAG IV (03:43)
[2023-02-15] MEDS: hydrALAZINE 20 MG/ML Vial 10 MG IV ×2 (04:46→08:20)
[2023-02-15] MEDS: Metoprolol(XL)Succ 50 MG Tablet PO (05:38)
[2023-02-15] MEDS: Isosorbide Mononitrate 60 MG Tablet PO (05:38)
[2023-02-15] MEDS: amLODIPine 10 MG Tablet PO (06:48)
[2023-02-15 08:00] LABS: Bedside Glucose 125 mg/dL (74-106)
[2023-02-15] MEDS: Venlafaxine XR 150 MG Capsule PO (08:21)
[2023-02-15] MEDS: metFORMIN HCl 500 MG Tablet PO (08:21)
[2023-02-15] MEDS: Calcium Carb/Vitamin D 1 TABLET Tablet PO (08:21)
[2023-02-15] MEDS: Pantoprazole Sodium 20 MG Tablet PO (08:21)
[2023-02-15] MEDS: Clopidogrel Bisulfate 75 MG Tablet PO (08:21)
[2023-02-15] MEDS: Furosemide 40 MG Tablet PO (08:22)
[2023-02-15] MEDS: Potassium Chloride Oral Tablet 20 MEQ PO (08:22)
[2023-02-15] MEDS: Aspirin 325 MG Tablet PO (08:22)
[2023-02-15] MEDS: Albuterol 2.5 MG/3 ML VIAL.NEB. INHALATION (08:23)
[2023-02-15] MEDS: Atorvastatin Calcium 80 MG Tablet PO (08:23)
[2023-02-15] MEDS: Enoxaparin 40 MG/0.4 ML Syringe SC (08:23)
[2023-02-15] MEDS: Budesonide Respules 0.5 MG/2 ML AMPUL.NEB. INHALATION (08:23)
[2023-02-15] MEDS: oxyCODONE HCl Cr 10 MG Tablet 20 MG PO (09:48)
[2023-02-15] MEDS: 0.45% Normal Saline 1,000 ML 50 ML IV (09:48)
[2023-02-15] MEDS: Furosemide 40 MG/4 ML Vial IV (10:46)
--- NOTE | 2023-02-15 10:53 | PN.SURG_ITS ---
Subjective Subjective Patient seen resting comfortably in bed this morning. He had high blood pressures requiring PRNs overnight, home antihypertensive regimen was started this morning. Martinez catheter was removed, purewick in place and he is voiding without difficulty. A few days prior to surgery he ran out of his flomax and subsequently stopped taking his lasix as well. He has some lower extremity edema, otherwise denies SOB/CP. He denies any headache, vision changes, weakness, sensory deficit. His tongue is midline, no issues talking/eating. CATALINA drain had low output overnight. Objective Data Objective Data Vital Signs: Vital Signs Temp Pulse Resp BP Pulse Ox O2 Del Method O2 Flow Rate 97.5 F L 87 24 H 119/50 L 94 Room Air 1 02/15/23 08:00 02/15/23 10:00 02/15/23 10:00 02/15/23 10:00 02/15/23 10:00 02/15/23 10:00 02/15/23 09:00 Oxygen Flow Rate (L/min) 1 Oxygen Delivery Method Room Air Weight: 201 lb 11.567 oz Body Mass Index (BMI) 33.5 Intake & Output: Intake and Output for Last 24 Hours 02/13/23 02/14/23 02/15/23 23:59 23:59 23:59 Intake Total 1515.13 / 1515.13 1232.5 / 1232.5 Output Total 825 / 825 1587 / 1587 Balance 690.13 / 690.13 -354.5 / -354.5 Lab / Micro Data 02/15/23 03:35 02/09/23 14:46 Labs: Laboratory Results - last 24 hr 02/14/23 16:38: POC Glucose 143 H 02/14/23 20:12: POC Glucose 187 H 02/15/23 03:35: WBC 9.5, RBC 3.45 L, Hgb 11.2 L, Hct 32.5 L, MCV 94.2 H, MCH 32.5 H, MCHC 34.5, RDW Std Deviation 44.4 H, RDW Coeff of [place] 12.9, Plt Count 180, MPV 8.2, Immature Gran % (Auto) 0.600, Neut % (Auto) 83.7 H, Lymph % (Auto) 11.5 L, [place] % (Auto) 4.1, Eos % (Auto) 0.0, Baso % (Auto) 0.1, Absolute Neuts ( auto) 7.9 H, Absolute Lymphs (auto) 1.09, Nucleated RBC % 0 02/15/23 07:43: POC Glucose 125 H Physical Exam Const alert, oriented x3 and no apparent distress General Appearance: cooperative and comfortable HEENT normocephalic, head/scalp atraumatic, hearing grossly normal bilaterally, external ears normal and external nose normal Head and Scalp: normocephalic and atraumatic Nose: external nose normal Eyes EOMs intact bilaterally General Eye: normal appearance of both eyes Neck Neck Narrative: R CEA incision site with surgical glue intact. Mild ecchymosis. No erythema, focal swelling, dehiscence, abnormal drainage. R CATALINA drain intact, minimal ouput. Resp normal respiratory effort, no retractions and no use of accessory muscles Effort and Inspection: able to speak in complete sentences; Negative for labored, stridor or audible wheezes Cardio regular rate and regular rhythm Skin no rashes or lesions noted Trauma: no lacerations or abrasions Neuro oriented x3, CN's II-XII intact bilaterally, moves all extremities, no focal motor deficits and no sensory deficits noted Psych mental status grossly normal Appearance: grossly normal Attitude: calm and engaged Activity / Motor Behavior: appropriate eye contact Speech: normal speech Mood & Affect: euthymic mood Judgement: judgement good Assessment & Plan Assessment/Plan (1) Carotid artery stenosis: QUALIFIERS: Laterality: bilateral Qualified Code(s): I65.23 - Occlusion and stenosis of bilateral carotid arteries PLAN: Plan He is s/p R CEA on 02/14/2023. CATALINA drain was removed without issue. Will continue to monitor blood pressures, have already improved with resuming his home meds. His flomax and lasix were restarted as well. Also gave one time dose of 40mg Lasix IV given. Will progress to normal diet and ambulate this morning. If he does well and BP remains stable anticipate d/c this afternoon.
[2023-02-15 11:37] LABS: Bedside Glucose 160 mg/dL (74-106)
[2023-02-15] MEDS: Insulin Lispro 100 UNIT/ML INSULN.PEN SC (11:47)
--- NOTE | 2023-02-15 13:50 | CASEMGMT ---
OLLIE NAYLOR Assessment: Face to Face with pt for initial transition planning/care coordination assessment. RN CYNDY introduced self and role at [facility], pt voices understanding and consents to assessment. Pt is A&O x4 and answers all questions appropriately at this time. Pt sitting up in chair in no distress. Care providers, pharmacy, and demographics verified/updated. Admitting Dx:carotid endarterectomy PCP:Alma Rosa Song OFFICE MACHINE TECHNICIAN Specialists:Rocky, vasc; Daysi, pain mgmt; Mikey, cardio Preferred Pharmacy:[facility] Insurance:[employer], [facility] Prescription Benefit: yes LNOK:Zaida Flowers, friend Living Arrangements: Pt lives alone in a mobile home with a ramp and 4 steps to enter with railing. Pt reports he is I in ADLs. States his friend Zaida is present for bathing outside the door for safety. Pt does his own laundry. Pt dtr or Zaida gets his groceries for him. Pt reports having meals delivered. Pt denies concerns at home. Transportation: Pt drives self and denies concerns with transportation. DME:lift chair, cane, walk in shower, oxygen through [facility] at 1.5 liter at HS. Pt states he is getting a FWW through his passport case filler Kendra Mcdermott. Updated SW. Asked if pt needed this to go home with today. Pt states he has his home set up to furniture walk and he uses his cane. HHC/SNF:Denies hx of Pt states no concerns with going home at time of dc. Pt states no further concerns/needs. CM to follow. Advised pt to ask CM if any further question/concerns/needs arise, voices understanding. Pt Goal:Home Plan:Home
--- NOTE | 2023-02-15 14:36 | DS.PCM_ITS ---
Providers Date of Admission: 02/14/23 Primary Care Physician: BLAIRE NathanC Reason For Visit: Carotid Endarterectomy Diagnosis Discharge Diagnosis (1) Carotid artery stenosis: Status: Chronic Code(s): I65.29 - Occlusion and stenosis of unspecified carotid artery Qualifiers: Laterality: bilateral Qualified Code(s): I65.23 - Occlusion and steno sis of bilateral carotid arteries Medications at Discharge Home Medications amlodipine 10 mg tablet 10 mg PO DAILY HTN 06/20/17 nitroglycerin 0.4 mg sublingual tablet 0.4 mg sublingual Q5M PRN chest pain 06/20/17 albuterol sulfate 90 mcg/actuation aerosol inhaler 2 puff inhalation Q4H PRN shortness of breath or wheezing 08/18/22 atorvastatin 80 mg tablet 80 mg PO DAILY HLD 08/18/22 budesonide-formoterol HFA 160 mcg-4.5 mcg/actuation aerosol inhaler 2 puff inhalation DAILY BREATHING 08/18/22 clopidogrel 75 mg tablet (Plavix) 75 mg PO DAILY BLOOD THINNER #30 tabs 08/18/22 esomeprazole magnesium 20 mg capsule,delayed release 20 mg PO DAILY GERD 08/18/22 furosemide 40 mg tablet 40 mg PO Q12H EDEMA 08/18/22 isosorbide mononitrate 60 mg tablet,extended release 24 hr 60 mg PO DAILY BLOOD PRESSURE 08/18/22 metformin 500 mg tablet 500 mg PO BID DIABETES 08/18/22 metoprolol succinate 50 mg tablet,extended release 24 hr 50 mg PO DAILY HEART RATE 08/18/22 oxycodone myristate 18 mg capsule sprinkle extended release 12hr(DON'T CRUSH) 18 mg PO Q12H BACK AND LEG PAIN 08/18/22 potassium chloride 20 mEq tablet,extended release 20 meq PO BID SUPPLEMENT 08/18/22 venlafaxine 150 mg capsule,extended release 24 hr 150 mg PO DAILY DEPRESSION 08/18/22 aspirin 325 mg tablet 325 mg PO DAILY HEART HEALTH 09/27/22 calcium carb-ergocalciferol (vit D2) 600 mg calcium-200 unit tablet 1 tab PO DAILY SUPPLEMENT 09/27/22 mecobalamin (vitamin B12) 1,000 mcg chewable tablet (B12 Active) 1,000 mcg PO DAILY SUPPLEMENT 09/27/22 tamsulosin 0.4 mg capsule 0.4 mg PO QHS URINE FLOW #30 caps 01/03/24 Hospital Course Operations - (Right carotid endarterectomy) Summary of Care Provided Hospital Course: Mr. David Garcia is a 72-year-old male who underwent right carotid endarterectomy on 02/14/2023. The surgery went as planned and he tolerated it well. Postoperatively he was routinely admitted to the ICU for hemodynamic and neurologic monitoring. He has remained neurologically stable throughout his stay. He was hypertensive overnight requiring as needed labetalol and hydralazine; however, his blood pressures have improved since his home antihypertensive regimen was resumed. Prior to his surgery, patient had been out of his Flomax for several days and subsequently had also decided to stop taking his Lasix. Consequently, he was noted to have some lower extremity edema on admission but without any difficulty breathing. His Flomax and Lasix were both restarted. We will send him with needed refills. Otherwise, he has been without shortness of breath, chest pain, headache, focal motor weakness or sensory deficit, tongue deviation/difficulty eating or swallowing. His pain is well-controlled on current oral regimen. He is tolerating a normal diet. He was able to ambulate without difficulty. He is voiding without difficulty. He is medically stable for discharge home with the support of his /family. He is scheduled for outpatient follow-up in the office on 03/02/2023. Physical Exam Const alert, oriented x3 and no apparent distress General Appearance: cooperative and comfortable HEENT normocephalic, head/scalp atraumatic, hearing grossly normal bilaterally, external ears normal and external nose normal Head and Scalp: normocephalic and atraumatic Nose: external nose normal Eyes EOMs intact bilaterally General Eye: normal appearance of both eyes Neck Neck Narrative: R CEA incision site with surgical glue intact. Mild ecchymosis. No erythema, focal swelling, dehiscence, abnormal drainage. Resp normal respiratory effort, no retractions and no use of accessory muscles Effort and Inspection: able to speak in complete sentences; Negative for labored, stridor or audible wheezes Cardio regular rate and regular rhythm Skin no rashes or lesions noted Trauma: no lacerations or abrasions Neuro oriented x3, CN's II-XII intact bilaterally, moves all extremities, no focal motor deficits and no sensory deficits noted Psych mental status grossly normal Appearance: grossly normal Attitude: calm and engaged Activity / Motor Behavior: appropriate eye contact Speech: normal speech Mood & Affect: euthymic mood Judgement: judgement good Weight / BMI Weight Weight: 201 lb 11.567 oz Body Mass Index (BMI) 33.5 ABG / Lab / Microbiology Data 02/15/23 03:35 02/09/23 14:46 Laboratory: Laboratory Results - last 24 hr 02/14/23 16:38: POC Glucose 143 H 02/14/23 20:12: POC Glucose 187 H 02/15/23 03:35: WBC 9.5, RBC 3.45 L, Hgb 11.2 L, Hct 32.5 L, MCV 94.2 H, MCH 32.5 H, MCHC 34.5, RDW Std Deviation 44.4 H, RDW Coeff of [place] 12.9, Plt Count 180, MPV 8.2, Immature Gran % (Auto) 0.600, Neut % (Auto) 83.7 H, Lymph % (Auto) 11.5 L, [place] % (Auto) 4.1, Eos % (Auto) 0.0, Baso % (Auto) 0.1, Absolute Neuts (auto) 7.9 H, Absolute Lymphs (auto) 1.09, Nucleated RBC % 0 02/15/23 07:43: POC Glucose 125 H 02/15/23 11:20: POC Glucose 160 H D/C Instructions Discharge Diet: Carb Control Diet May shower in (days): 1 Weight Bearing Status: Weight bearing as tolerated Lifting Restricted to (Lbs): 20 Lifting Restrictions: Do not lift greater than 20 pounds for 3 weeks Call your doctor if your incision/area has: Sudden Increased Bleeding, Increased Pain/ Swelling and Foul Smelling Discharge Call your doctor if you observe: Fever of 101 or Higher and Uncontrolled pain Remove Dressing in: 1 day Additional Instructions: You have a small bandage over the site from which the surgical drain was removed. You may remove this bandage tomorrow. As long as there is no residual drainage, you may leave this open to air. If you do notice some continued drainage, you may re-cover with a Band-Aid. Your incision site is covered with surgical glue which will continue to protect it. The surgical glue will peel/flake off on its own over the next few weeks. Please do not pick at it. You may shower tomorrow. It is okay for soap and water to rinse over the incision site, pat to dry. Do not submerge the incision site in water such as to take a bath or go swimming etc. for 3 weeks. Do not lift greater than 20 pounds for 3 weeks. Otherwise, please continue with activity as tolerated. Do not drive until you can turn your head well enough to safely check your blind spots. I have prescribed a refill of your Flomax (Tamsulosin). Please continue to take this daily as prescribed. Please contact your PCP for future refills. Please resume your Lasix (Furosemide) as prescribed. Your first post-operative appointment in the office is scheduled on 03/02/23. Please call the office at [phone] if you need to change your appointment or have any other questions/concerns. Meaningful Use Info Meaningful Use Diagnoses (Choose all that apply): None applicable Discharge Plan Admission Admit Date/Time: 02/14/23 08:04 Primary Reason for Your Visit: R Carotid Endarterectomy Attending Provider: Amauri Hidalgo Primary Care Provider: Alma Rosa Song NP Instructions Additional Instructions / Restrictions: You have a small bandage over the site from which the surgical drain was removed. You may remove this bandage tomorrow. As long as there is no residual drainage, you may leave this open to air. If you do notice some continued drainage, you may re-cover with a Band-Aid. Your incision site is covered with surgical glue which will continue to protect it. The surgical glue will peel/flake off on its own over the next few weeks. Please do not pick at it. You may shower tomorrow. It is okay for soap and water to rinse over the incision site, pat to dry. Do not submerge the incision site in water such as to take a bath or go swimming etc. for 3 weeks. Do not lift greater than 20 pounds for 3 weeks. Otherwise, please continue with activity as tolerated. Do not drive until you can turn your head well enough to safely check your blind spots. I have prescribed a refill of your Flomax (Tamsulosin). Please continue to take this daily as prescribed. Please contact your PCP for future refills. Please resume your Lasix (Furosemide) as prescribed. Your first post-operative appointment in the office is scheduled on 03/02/23. Please call the office at [phone] if you need to change your appointment or have any other questions/concerns. Discharge Orders/Prescriptions Prescriptions: Continued amlodipine 10 mg tablet 10 mg PO DAILY nitroglycerin 0.4 mg tablet, sublingual 0.4 mg SUBLINGUAL Q5M PRN (Reason: chest pain) furosemide 40 mg tablet 40 mg PO Q12H metformin 500 mg tablet 500 mg PO BID oxycodone myristate 18 mg cap,sprinkl,ER12hr(DONT CRUSH) 18 mg PO Q12H Rx Instructions: must administer with a meal/food potassium chloride 20 mEq tablet extended release 20 meq PO BID clopidogrel [Plavix] 75 mg tablet 75 mg PO DAILY Qty: 30 0RF esomeprazole magnesium 20 mg capsule,delayed release(DR/EC) 20 mg PO DAILY Patient Comments: TAKE 1 CAPSULE BY MOUTH DAILY albuterol sulfate 90 mcg/actuation HFA aerosol inhaler 2 puff inhalation Q4H PRN (Reason: shortness of breath or wheezing) Patient Comments: INHALE 2 PUFFS EVERY 4 HOURS NEEDED NEEDED FOR SHORTNESS OF BREATH, WH EEZING, PERSISTENT COUGH isosorbide mononitrate 60 mg tablet extended release 24 hr 60 mg PO DAILY Patient Comments: TAKE 1 TABLET BY MOUTH DAILY venlafaxine 150 mg capsule,extended release 24hr 150 mg PO DAILY budesonide-formoterol 160-4.5 mcg/actuation HFA aerosol inhaler 2 puff inhalation DAILY metoprolol succinate 50 mg tablet extended release 24 hr 50 mg PO DAILY atorvastatin 80 mg tablet 80 mg PO DAILY Patient Comments: TAKE 1 TABLET BY MOUTH DAILY tamsulosin 0.4 mg capsule,extended release 24hr 0.4 mg PO QHS Qty: 30 0RF aspirin 325 mg tablet 325 mg PO DAILY mecobalamin (vitamin B12) [B12 Active] 1,000 mcg tablet,chewable 1,000 mcg PO DAILY calcium carbonate-vitamin D2 600 mg calcium- 200 unit tablet 1 tab PO DAILY Referrals / Follow Up: Alma Rosa Song HEAD START DIRECTOR, HEAD START DIRECTOR-C [Primary Care Provider] - Disposition Disposition (needs filled in before D/C Order can be placed): Home, Self Care
--- NOTE | 2023-02-15 15:55 | CASEMGMT ---
Social Work Pt has Passport Services through [facility]. Phone call to [facility] ([phone]) and updated on pt hospitalization. Pt CM is [employer] and pt has home delivered meals and an emergency response system. Pt's dgt provides personal care services. NATHAN Barajas
== END 2023-02-15 16:07 | disposition home or self-care (01) | DRG 38 ==
LOC: ACINP 08:08 → ICU 14:05
PROVIDERS: Anesthesiology; Admitting Provider Surgery Trauma Surgery; PCP Nurse Practitioner Family; Referring Provider Surgery Trauma Surgery; Visit Provider Surgery Trauma Surgery
PROC: 03CK0ZZ Extirpation of Matter from Right Internal Carotid Artery, Open Approach (ICD-10-PCS; CPT 35301; principal; 2023-02-14 10:15)
DX: I65.21 Occlusion and stenosis of right carotid artery (principal); I50.32 Chronic diastolic (congestive) heart failure; I11.0 Hypertensive heart disease with heart failure; E11.51 Type 2 diabetes mellitus with diabetic peripheral angiopathy without gangrene; J44.9 Chronic obstructive pulmonary disease, unspecified; F32.A Depression, unspecified; E78.00 Pure hypercholesterolemia, unspecified; I25.10 Atherosclerotic heart disease of native coronary artery without angina pectoris; F17.210 Nicotine dependence, cigarettes, uncomplicated; K21.9 Gastro-esophageal reflux disease without esophagitis; I25.2 Old myocardial infarction; R60.0 Localized edema; Z95.1 Presence of aortocoronary bypass graft; Z95.5 Presence of coronary angioplasty implant and graft; Z79.02 Long term (current) use of antithrombotics/antiplatelets; Z79.82 Long term (current) use of aspirin; Z79.84 Long term (current) use of oral hypoglycemic drugs; Z79.51 Long term (current) use of inhaled steroids; Z79.899 Other long term (current) drug therapy; Z86.73 Personal history of transient ischemic attack (TIA), and cerebral infarction without residual deficits
CPT/HCPCS: 36415; 80048; 82962; 83036; 85025; 85027; 86850; 86900; 86901; 88304; 88311; 94640; 94668; 99252; 99406; A4648; J7030; J7120; A4216; G0463; J1940; J2405

== ENCOUNTER → 2023-08-08 | Outpatient (CLI) | payer MEDICARE, MEDICAID, SELFPAY ==
[2023-08-08 12:27] LABS: Amphetamine Urine VISTA NEGATIVE (<1000 ng/mL); Barbiturate Urine VISTA NEGATIVE (< 200 ng/mL); Benzodiazepine Urine VISTA NEGATIVE (< 200 ng/mL); Cocaine Urine VISTA NEGATIVE (< 300 ng/mL); Ecstacy Urine VISTA NEGATIVE (< 500 ng/mL); Methadone Urine VISTA NEGATIVE (< 300 ng/mL); PCP Urine VISTA NEGATIVE (< 25 ng/mL); THC Urine VISTA NEGATIVE (< 50 ng/mL); Vista UDS pH Range 5
== END | disposition home or self-care (01) ==
LOC: LAB 10:18
PROVIDERS: PCP Nurse Practitioner Family; Referring Provider Anesthesiology Pain Medicine; Visit Provider Anesthesiology Pain Medicine
DX: F11.20 Opioid dependence, uncomplicated (principal)
CPT/HCPCS: 80307

== ENCOUNTER → 2023-11-30 | Outpatient (CLI) | payer MEDICARE, MEDICAID, SELFPAY ==
[2023-11-30 14:38] LABS: Amphetamine Urine VISTA NEGATIVE (<1000 ng/mL); Barbiturate Urine VISTA NEGATIVE (< 200 ng/mL); Benzodiazepine Urine VISTA NEGATIVE (< 200 ng/mL); Cocaine Urine VISTA NEGATIVE (< 300 ng/mL); Ecstacy Urine VISTA NEGATIVE (< 500 ng/mL); Methadone Urine VISTA NEGATIVE (< 300 ng/mL); PCP Urine VISTA NEGATIVE (< 25 ng/mL); THC Urine VISTA NEGATIVE (< 50 ng/mL); Vista UDS pH Range 5
== END | disposition home or self-care (01) ==
LOC: LAB 12:56
PROVIDERS: PCP Nurse Practitioner Family; Referring Provider Anesthesiology Pain Medicine; Visit Provider Anesthesiology Pain Medicine
DX: F11.20 Opioid dependence, uncomplicated (principal)
CPT/HCPCS: 80307

== ENCOUNTER → 2024-05-16 | Outpatient (CLI) | payer MEDICARE, MEDICAID, SELFPAY ==
[2024-05-16 12:07] LABS: Amphetamine Urine NEGATIVE (<1000 ng/mL); Barbiturate Urine NEGATIVE (< 200 ng/mL); Benzodiazepine Urine NEGATIVE (< 200 ng/mL); Buprenorphine Urine NEGATIVE (< 200 ng/mL); Cocaine Urine NEGATIVE (< 300 ng/mL); Fentanyl, Urine NEGATIVE; Methadone Urine NEGATIVE (< 300 ng/mL); Opiates Urine NEGATIVE (< 300 ng/mL); Oxycodone, Urine PRESUMPTIVE POSITIVE (< 100 ng/mL); PCP Urine NEGATIVE (< 25 ng/mL); THC Urine NEGATIVE (< 50 ng/mL)
== END | disposition home or self-care (01) ==
LOC: LAB 09:48
PROVIDERS: PCP Nurse Practitioner Family; Referring Provider Anesthesiology Pain Medicine; Visit Provider Anesthesiology Pain Medicine
DX: F11.20 Opioid dependence, uncomplicated (principal)
CPT/HCPCS: 80307